=== PATIENT | female | born 1930 | race Caucasian/White ===

== ENCOUNTER 2016-09-01 17:29 | Inpatient (IN) | payer MEDICARE ==
[~2016-09-01] VITALS: Ht 157.5 cm; Wt 44.3 kg
[~2016-09-01 17:29] MED LIST: AMLO2.5T PO; ASPI-515 PO; CITA20TA9 PO; DIAZ2TAB PO; DOCU-30 PO; HYDR-3240 PO; HYDR-3307 PO; ONDA4TAB10 PO; POTA20TA14 PO
[2016-09-01] MEDS ORDERED: ONDANSETRON ODT 4 MG PO ONE (19:00)
[2016-09-01] MEDS ORDERED: DIAZEPAM 2 MG TABLET PO PRN ×2 (19:00→22:30)
[2016-09-01] MEDS ORDERED: SODIUM CHLORIDE 0.9% 1,000ML IVBOLUS ONE (19:00)
[2016-09-01 19:08] LABS: ASPARTATE AMINO TRANSFERASE 13 U/L (15-37); BLOOD UREA NITROGEN 12 mg/dL (7-18)
[2016-09-01] MEDS ORDERED: DIAZEPAM 5 MG TABLET ONE (19:17)
[2016-09-01] MEDS ORDERED: ONDANSETRON ODT 4 MG ONE (19:24)
[2016-09-01] MEDS ORDERED: ACETAMINOPHEN 325 MG TABLET PO PRN (22:30)
[2016-09-01] MEDS ORDERED: ONDANSETRON 2MG/ML, 2ML IVPush PRN (22:30)
[2016-09-01] MEDS ORDERED: ENOXAPARIN 40 MG/0.4 ML SQ SCH (22:30)
[2016-09-01] MEDS ORDERED: TEMAZEPAM 15 MG CAPSULE PO PRN (22:30)
[2016-09-01 22:54] VITALS: BP 181/97
[2016-09-01] MEDS ORDERED: LABETALOL 5MG/ML, 20ML IVPush ONE (23:30)
[2016-09-01] MEDS: SODIUM CHLORIDE 0.9% 1,000 ML IV SCH (23:37)
[2016-09-02 00:12] VITALS: BP 153/83
[2016-09-02] MEDS: HYDROcodone/APAP 10/325 MG TABLET PO PRN ×2 (00:25→22:57)
[2016-09-02] MEDS ORDERED: LABETALOL 5MG/ML, 20ML IVPush PRN (01:30)
[2016-09-02] MEDS ORDERED: PROCHLORPERAZINE 5 MG/ML, 2ML IVPush PRN (02:30)
[2016-09-02 07:34] LABS: BLOOD UREA NITROGEN 11 mg/dL (7-18)
[2016-09-02 07:45] VITALS: BP 109/63
[2016-09-02] MEDS: ASPIRIN 81 MG TABLET EC PO SCH ×2 (09:04→21:44)
[2016-09-02] MEDS: AMLODIPINE 2.5 MG TABLET PO SCH (09:04)
[2016-09-02] MEDS: CITALOPRAM 20 MG TABLET PO SCH (09:04)
[2016-09-02] MEDS ORDERED: GADOBUTROL 7.5 MMOL/7.5 ML PFS ONE (11:46)
[2016-09-02 13:05] VITALS: BP 136/76
[2016-09-02] MEDS: SODIUM CHLORIDE 0.9% 1,000 ML IV SCH (13:36)
[2016-09-02 19:13] VITALS: BP 139/79
[2016-09-02] MEDS ORDERED: ENOXAPARIN 30 MG/0.3 ML SQ SCH (23:00)
[2016-09-03 01:31] VITALS: BP 112/65
[2016-09-03] MEDS: SODIUM CHLORIDE 0.9% 1,000 ML IV SCH (02:03)
[2016-09-03 05:44] LABS: BLOOD UREA NITROGEN 8 mg/dL (7-18)
[2016-09-03 08:14] VITALS: BP 136/75
[2016-09-03] MEDS: CITALOPRAM 20 MG TABLET PO SCH (08:53)
[2016-09-03] MEDS: HYDROcodone/APAP 10/325 MG TABLET PO PRN (08:53)
[2016-09-03] MEDS: AMLODIPINE 2.5 MG TABLET PO SCH (08:53)
[2016-09-03] MEDS: ASPIRIN 81 MG TABLET EC PO SCH (08:53)
[2016-09-03] MEDS ORDERED: CEFTRIAXONE 1,000 MG in SODIUM CHLORIDE 0.9% 50 ML IV SCH (10:30)
[2016-09-03] MEDS: POTASSIUM CHLORIDE 20 MEQ TAB.ER.PRT PO SCH ×2 (11:58→13:08)
[2016-09-03 15:06] VITALS: BP 116/70
[2016-09-03] MEDS ORDERED: CEFD300C37 PO (16:18)
[2016-09-03] MEDS ORDERED: SIMV10TA PO (16:19)
== END 2016-09-03 17:11 | disposition home or self-care (01) | DRG 152 ==
LOC: ED 18:49 → EDIP 21:07 → 3NE 22:48
PROVIDERS: ADMIT Internal Medicine; ATTEND Internal Medicine
PROC: 0T9B70Z Drainage of Bladder with Drainage Device, Via Natural or Artificial Opening (ICD-10-PCS; principal; 2016-09-01)
DX: J01.30 Acute sphenoidal sinusitis, unspecified (principal); S72.141A Displaced intertrochanteric fracture of right femur, initial encounter for closed fracture; E87.1 Hypo-osmolality and hyponatremia; Z68.1 Body mass index [BMI] 19.9 or less, adult; Z88.6 Allergy status to analgesic agent; Z88.0 Allergy status to penicillin; Z85.43 Personal history of malignant neoplasm of ovary; E78.5 Hyperlipidemia, unspecified; E86.0 Dehydration; E88.89 Other specified metabolic disorders; G25.81 Restless legs syndrome; G89.29 Other chronic pain; M54.9 Dorsalgia, unspecified; M54.2 Cervicalgia; I10 Essential (primary) hypertension; M17.11 Unilateral primary osteoarthritis, right knee; M81.0 Age-related osteoporosis without current pathological fracture; Z82.3 Family history of stroke; Z86.14 Personal history of Methicillin resistant Staphylococcus aureus infection; Z91.81 History of falling
CPT/HCPCS: 36415; 70450; 70553; 71010; 80048; 80053; 81003; 83690; 83735; 84100; 85025; 99285; A9585; J0696; J1650; J2405; Q0162; J0780; J7030